=== PATIENT | female | born 1955 | race Caucasian/White ===

== ENCOUNTER 2024-02-23 11:55 | Emergency (ER) | payer OTHER, MEDICARE ==
[2024-02-23 12:52] VITALS: BP 133/87; PULSE 81; RESP 16; TEMP 97.9; BMI 34.5
== END 2024-02-23 14:15 | disposition home or self-care (01) ==
LOC: FER 11:55
DX: M79.672 Pain in left foot (principal); M25.475 Effusion, left foot; W01.0XXA Fall on same level from slipping, tripping and stumbling without subsequent striking against object, initial encounter
CPT/HCPCS: 73610-TC-LT-FY; 73630-TC-LT; 99283-25